=== PATIENT | female | born 1990 | race African-American/Black ===

== ENCOUNTER 2018-11-07 12:19 | Emergency (ER) | payer MEDICAID ==
[~2018-11-07] VITALS: Ht 162.6 cm; Wt 73.0 kg
[2018-11-07 12:32] VITALS: BP 130/77
[2018-11-07] MEDS ORDERED: DIPHENHYDRAMINE 25MG CAPSULE PO ONE (15:00)
[2018-11-07] MEDS ORDERED: TRIAMCINOLONE ACETONIDE 0.1 % OINT 15GM TOP SCH (15:10)
== END 2018-11-07 15:50 | disposition home or self-care (01) ==
LOC: ER 12:19
DX: S80.862A Insect bite (nonvenomous), left lower leg, initial encounter (principal); S80.861A Insect bite (nonvenomous), right lower leg, initial encounter; S40.862A Insect bite (nonvenomous) of left upper arm, initial encounter; S40.861A Insect bite (nonvenomous) of right upper arm, initial encounter; J45.909 Unspecified asthma, uncomplicated; R21 Rash and other nonspecific skin eruption; L29.8 Other pruritus; Z98.51 Tubal ligation status; W57.XXXA Bitten or stung by nonvenomous insect and other nonvenomous arthropods, initial encounter; Y93.89 Activity, other specified; Y92.89 Other specified places as the place of occurrence of the external cause; Y99.8 Other external cause status
CPT/HCPCS: 99283; Q0163

== ENCOUNTER 2018-12-24 14:30 | Emergency (ER) | payer MEDICAID ==
[~2018-12-24] VITALS: Ht 162.6 cm; Wt 73.0 kg
[2018-12-24 14:47] VITALS: BP 128/75
== END 2018-12-24 17:55 | disposition left against medical advice (07) ==
LOC: ER 14:30
DX: R07.89 Other chest pain (principal); Z53.21 Procedure and treatment not carried out due to patient leaving prior to being seen by health care provider